=== PATIENT | female | born 1975 | race Caucasian/White ===

== ENCOUNTER 2021-02-07 11:43 | Inpatient (IN) ==
[2021-02-07] MEDS ORDERED: Vancomycin 1,500 MG/265 ML IV.SOLN IVPB ONE (12:03)
[2021-02-07] MEDS ORDERED: 0.9 % Sodium Chloride 1,000 ML IVC ONE (12:03)
[2021-02-07 12:34] LABS: Basophils % 0.4 %; Eosinophils # 0.4 K/mcL (0.0-0.6); Eosinophils % 3.4 %; Hematocrit 35.5 % (35.3-44.9); Hemoglobin 11.3 g/dL (11.5-15.4); Immature Granulocytes % 0.4 % (0-4); Lymphocytes # 1.5 K/mcL (0.6-4.6); Lymphocytes % 12.9 %; Mean Corpuscular HGB Conc 31.8 g/dL (31.6-35.5); Mean Corpuscular Hemoglobin 28.7 pg (28.0-33.3); Mean Corpuscular Volume 90.1 fL (83.0-100.0); Mean Platelet Volume 9.4 fL (9.4-12.4); Monocytes # 0.6 K/mcL (0.0-1.3); Monocytes % 5.4 %; Neutrophils # 8.8 K/mcL (1.6-8.9); Platelet Count 392 K/mcL (140-400); Red Blood Count 3.94 M/mcL (3.82-4.97); Red Cell Distribution Width 14.2 % (11.5-14.5); Segmented Neutrophils % 77.5 %; White Blood Count 11.4 K/mcL (4.3-11.1)
[2021-02-07 12:36] LABS: Basophils # 0.1 K/mcL (0.0-0.2)
[2021-02-07 12:58] LABS: Alanine Aminotransferase 11 Units/L (7-52); Albumin 3.8 g/dL (3.5-5.7); Albumin/Globulin Ratio 0.9 (1.1-2.2); Alkaline Phosphatase 74 Units/L (34-104); Aspartate Amino Transferase 20 Units/L (13-39); BUN/Creatinine Ratio 17 (6-26); Bilirubin,Indirect 0.4 mg/dL (0.0-1.0); Bilirubin,Total 0.4 mg/dL (0.3-1.0); Blood Urea Nitrogen 16 mg/dL (6-20); Calcium 8.7 mg/dL (8.6-10.3); Carbon Dioxide 25 mEq/L (23-29); Chloride 102 mEq/L (98-107); Globulin 4.3 g/dL (2.4-3.5); Glucose 91 mg/dL (70-105); Osmolality,Calculated 285 (280-300); Potassium 3.7 mEq/L (3.5-5.1); Sodium 137 mEq/L (136-145); Total Protein 8.1 g/dL (6.4-8.9); eGFR For African Americans > 60 (> 60); eGFR For Non-African Americans > 60 (> 60)
[2021-02-07] MEDS ORDERED: Ondansetron 4 MG/2 ML VIAL IVP PRN (14:50)
[2021-02-07] MEDS ORDERED: Naloxone 0.4 MG/ML INJ IVP PRN (14:50)
[2021-02-07] MEDS ORDERED: Mag Hydrox/Al Hydrox/Simeth 30 ML UDC PO PRN (14:50)
[2021-02-07] MEDS ORDERED: MOM Conc 10 ML UD.LIQ PO PRN (14:50)
[2021-02-07] MEDS: 0.9 % Sodium Chloride 1,000 ML IVC SCH (17:02)
[2021-02-07] MEDS: *HR* Enoxaparin 100 MG/ML SYRINGE SQ SCH (17:03)
[2021-02-07] MEDS: Nystatin POWDER 30 GM BOTTLE TP SCH ×2 (17:04→19:48)
[2021-02-07] MEDS: Piperacillin/Tazobactam 3.375 GM in 0.9 % Sodium Chloride Mini Bag 100 ML IVPB SCH (17:08)
[2021-02-07] MEDS: Melatonin 3 MG TABLET PO PRN (19:48)
[2021-02-07 20:12] LABS: Estimated Average Glucose 108 mg/dl; Hemoglobin A1C 5.4 %
[2021-02-08] MEDS: 0.9 % Sodium Chloride 1,000 ML IVC SCH ×2 (01:16→04:58)
[2021-02-08] MEDS: Piperacillin/Tazobactam 3.375 GM in 0.9 % Sodium Chloride Mini Bag 100 ML IVPB SCH ×3 (01:17→16:46)
[2021-02-08] MEDS: *HR* Enoxaparin 100 MG/ML SYRINGE SQ SCH (06:05)
[2021-02-08 07:05] LABS: Basophils % 0.5 %; Eosinophils # 0.4 K/mcL (0.0-0.6); Hematocrit 32.1 % (35.3-44.9); Immature Granulocytes % 0.4 % (0-4); Lymphocytes # 1.7 K/mcL (0.6-4.6); Lymphocytes % 19.5 %; Mean Corpuscular HGB Conc 31.2 g/dL (31.6-35.5); Mean Corpuscular Hemoglobin 28.7 pg (28.0-33.3); Mean Corpuscular Volume 92.2 fL (83.0-100.0); Mean Platelet Volume 9.5 fL (9.4-12.4); Monocytes # 0.6 K/mcL (0.0-1.3); Monocytes % 6.5 %; Neutrophils # 5.8 K/mcL (1.6-8.9); Platelet Count 339 K/mcL (140-400); Red Blood Count 3.48 M/mcL (3.82-4.97); Red Cell Distribution Width 14.6 % (11.5-14.5); Segmented Neutrophils % 68.1 %; White Blood Count 8.4 K/mcL (4.3-11.1)
[2021-02-08 07:28] LABS: BUN/Creatinine Ratio 12 (6-26); Blood Urea Nitrogen 11 mg/dL (6-20); Calcium 7.8 mg/dL (8.6-10.3); Carbon Dioxide 26 mEq/L (23-29); Chloride 107 mEq/L (98-107); Glucose 87 mg/dL (70-105); Osmolality,Calculated 287 (280-300); Potassium 3.6 mEq/L (3.5-5.1); Sodium 139 mEq/L (136-145); eGFR For African Americans > 60 (> 60); eGFR For Non-African Americans > 60 (> 60)
[2021-02-08] MEDS: Valsartan 80 MG TABLET PO SCH (10:14)
[2021-02-08] MEDS: Lactobacillus 1 EACH CAP.SPRINK PO SCH (10:14)
[2021-02-08] MEDS: Loratadine 10 MG TABLET PO SCH (10:14)
[2021-02-08] MEDS: Famotidine 20 MG TABLET PO SCH (10:15)
[2021-02-08] MEDS: Nystatin POWDER 30 GM BOTTLE TP SCH ×3 (10:16→20:39)
[2021-02-08] MEDS: *HR* Rivaroxaban 15 MG TABLET PO SCH (18:33)
[2021-02-08] MEDS: Melatonin 3 MG TABLET PO PRN (20:39)
[2021-02-09] MEDS: Piperacillin/Tazobactam 3.375 GM in 0.9 % Sodium Chloride Mini Bag 100 ML IVPB SCH ×3 (00:49→15:35)
[2021-02-09] MEDS: Acetaminophen 325 MG TABLET PO PRN ×2 (06:06→13:06)
[2021-02-09] MEDS: Lactobacillus 1 EACH CAP.SPRINK PO SCH (08:44)
[2021-02-09] MEDS: Valsartan 80 MG TABLET PO SCH (08:44)
[2021-02-09] MEDS: Loratadine 10 MG TABLET PO SCH (08:44)
[2021-02-09] MEDS: Famotidine 20 MG TABLET PO SCH (08:44)
[2021-02-09] MEDS: *HR* Rivaroxaban 15 MG TABLET PO SCH (08:45)
[2021-02-09] MEDS: Nystatin POWDER 30 GM BOTTLE TP SCH ×3 (08:46→19:52)
[2021-02-09 09:40] LABS: Basophils % 0.5 %; Eosinophils # 0.5 K/mcL (0.0-0.6); Eosinophils % 6.4 %; Hematocrit 33.2 % (35.3-44.9); Hemoglobin 10.3 g/dL (11.5-15.4); Immature Granulocytes % 0.3 % (0-4); Lymphocytes # 1.4 K/mcL (0.6-4.6); Mean Corpuscular Hemoglobin 28.5 pg (28.0-33.3); Mean Corpuscular Volume 91.7 fL (83.0-100.0); Mean Platelet Volume 9.8 fL (9.4-12.4); Monocytes # 0.5 K/mcL (0.0-1.3); Monocytes % 5.9 %; Neutrophils # 5.6 K/mcL (1.6-8.9); Platelet Count 358 K/mcL (140-400); Red Blood Count 3.62 M/mcL (3.82-4.97); Red Cell Distribution Width 14.8 % (11.5-14.5); Segmented Neutrophils % 69.9 %
[2021-02-09 10:01] LABS: BUN/Creatinine Ratio 12 (6-26); Blood Urea Nitrogen 11 mg/dL (6-20); Calcium 8.1 mg/dL (8.6-10.3); Carbon Dioxide 23 mEq/L (23-29); Chloride 107 mEq/L (98-107); Glucose 97 mg/dL (70-105); Osmolality,Calculated 287 (280-300); Potassium 3.7 mEq/L (3.5-5.1); Sodium 139 mEq/L (136-145); eGFR For African Americans > 60 (> 60); eGFR For Non-African Americans > 60 (> 60)
[2021-02-10] MEDS: Piperacillin/Tazobactam 3.375 GM in 0.9 % Sodium Chloride Mini Bag 100 ML IVPB SCH ×3 (00:38→16:37)
[2021-02-10 07:21] LABS: Basophils % 0.4 %; Eosinophils # 0.6 K/mcL (0.0-0.6); Eosinophils % 6.5 %; Hematocrit 32.7 % (35.3-44.9); Hemoglobin 10.1 g/dL (11.5-15.4); Immature Granulocytes % 0.4 % (0-4); Lymphocytes # 1.3 K/mcL (0.6-4.6); Lymphocytes % 15.7 %; Mean Corpuscular HGB Conc 30.9 g/dL (31.6-35.5); Mean Corpuscular Hemoglobin 28.7 pg (28.0-33.3); Mean Corpuscular Volume 92.9 fL (83.0-100.0); Mean Platelet Volume 9.1 fL (9.4-12.4); Monocytes # 0.6 K/mcL (0.0-1.3); Monocytes % 6.6 %; Platelet Count 358 K/mcL (140-400); Red Blood Count 3.52 M/mcL (3.82-4.97); Red Cell Distribution Width 14.8 % (11.5-14.5); Segmented Neutrophils % 70.4 %; White Blood Count 8.5 K/mcL (4.3-11.1)
[2021-02-10 08:12] LABS: BUN/Creatinine Ratio 12 (6-26); Blood Urea Nitrogen 12 mg/dL (6-20); Calcium 8.1 mg/dL (8.6-10.3); Carbon Dioxide 27 mEq/L (23-29); Chloride 106 mEq/L (98-107); Glucose 93 mg/dL (70-105); Osmolality,Calculated 287 (280-300); Potassium 3.7 mEq/L (3.5-5.1); Sodium 139 mEq/L (136-145); eGFR For African Americans > 60 (> 60); eGFR For Non-African Americans 59 (> 60)
[2021-02-10] MEDS: Valsartan 80 MG TABLET PO SCH (08:55)
[2021-02-10] MEDS: Loratadine 10 MG TABLET PO SCH (08:56)
[2021-02-10] MEDS: Famotidine 20 MG TABLET PO SCH (08:56)
[2021-02-10] MEDS: Lactobacillus 1 EACH CAP.SPRINK PO SCH (08:56)
[2021-02-10] MEDS: Nystatin POWDER 30 GM BOTTLE TP SCH ×3 (08:57→21:50)
[2021-02-10] MEDS: *HR* Rivaroxaban 10 MG TABLET PO SCH (16:37)
[2021-02-10] MEDS: *HR* HYDROcodone/Acet 5/325 mg TABLET PO PRN (16:43)
[2021-02-10] MEDS: Melatonin 3 MG TABLET PO PRN (21:48)
[2021-02-11] MEDS: Piperacillin/Tazobactam 3.375 GM in 0.9 % Sodium Chloride Mini Bag 100 ML IVPB SCH ×3 (00:26→17:01)
[2021-02-11 07:10] LABS: Basophils % 0.4 %; Eosinophils # 0.5 K/mcL (0.0-0.6); Eosinophils % 6.4 %; Hematocrit 33.1 % (35.3-44.9); Hemoglobin 10.1 g/dL (11.5-15.4); Immature Granulocytes % 0.1 % (0-4); Lymphocytes # 1.3 K/mcL (0.6-4.6); Lymphocytes % 17.2 %; Mean Corpuscular HGB Conc 30.5 g/dL (31.6-35.5); Mean Corpuscular Hemoglobin 28.4 pg (28.0-33.3); Mean Platelet Volume 9.4 fL (9.4-12.4); Monocytes # 0.5 K/mcL (0.0-1.3); Monocytes % 6.6 %; Neutrophils # 5.3 K/mcL (1.6-8.9); Platelet Count 375 K/mcL (140-400); Red Blood Count 3.56 M/mcL (3.82-4.97); Red Cell Distribution Width 14.8 % (11.5-14.5); Segmented Neutrophils % 69.3 %; White Blood Count 7.6 K/mcL (4.3-11.1)
[2021-02-11 07:33] LABS: BUN/Creatinine Ratio 12 (6-26); Blood Urea Nitrogen 13 mg/dL (6-20); Calcium 8.2 mg/dL (8.6-10.3); Carbon Dioxide 27 mEq/L (23-29); Chloride 106 mEq/L (98-107); Glucose 87 mg/dL (70-105); Osmolality,Calculated 289 (280-300); Potassium 3.8 mEq/L (3.5-5.1); Sodium 140 mEq/L (136-145); eGFR For African Americans > 60 (> 60); eGFR For Non-African Americans 54 (> 60)
[2021-02-11] MEDS: Famotidine 20 MG TABLET PO SCH (08:52)
[2021-02-11] MEDS: Loratadine 10 MG TABLET PO SCH (08:52)
[2021-02-11] MEDS: Lactobacillus 1 EACH CAP.SPRINK PO SCH (08:53)
[2021-02-11] MEDS: Acetaminophen 325 MG TABLET PO PRN (09:01)
[2021-02-11] MEDS: Nystatin POWDER 30 GM BOTTLE TP SCH ×3 (09:04→20:41)
[2021-02-11] MEDS: Valsartan 80 MG TABLET PO SCH (09:04)
[2021-02-11] MEDS: *HR* HYDROcodone/Acet 5/325 mg TABLET PO PRN (10:14)
[2021-02-11] MEDS: *HR* Rivaroxaban 10 MG TABLET PO SCH (17:02)
[2021-02-11] MEDS: Melatonin 3 MG TABLET PO PRN (23:18)
[2021-02-12] MEDS: Piperacillin/Tazobactam 3.375 GM in 0.9 % Sodium Chloride Mini Bag 100 ML IVPB SCH ×2 (01:41→09:24)
[2021-02-12 07:05] VITALS: BP 130/73
[2021-02-12] MEDS: Famotidine 20 MG TABLET PO SCH (09:26)
[2021-02-12] MEDS: Lactobacillus 1 EACH CAP.SPRINK PO SCH (09:26)
[2021-02-12] MEDS: Valsartan 80 MG TABLET PO SCH (09:27)
[2021-02-12] MEDS: Loratadine 10 MG TABLET PO SCH (09:27)
[2021-02-12] MEDS: Nystatin POWDER 30 GM BOTTLE TP SCH ×2 (09:29→15:15)
[2021-02-12] MEDS ORDERED: FLU Vac QV 20-21 (6Month+)/PF 0.5 ML SYRINGE IM ONE (14:28)
[2021-02-12] MEDS: *HR* HYDROcodone/Acet 5/325 mg TABLET PO PRN (14:53)
== END 2021-02-12 15:44 | disposition home health service (06) | DRG 383 ==
LOC: INPPIK 11:43 → EMEROOPIK 11:43 → INPPIK 14:25
PROVIDERS: ADMIT Family Medicine; ATTEND Family Medicine